=== PATIENT | female | born 1950 | race Caucasian/White ===

== ENCOUNTER 2018-02-01 07:40 | Day surgery (SDC) | payer MEDICARE ==
[~2018-02-01] VITALS: Ht 165.1 cm; Wt 91.8 kg
[~2018-02-01 07:40] MED LIST: CHOL500015 PO; GABA300C10 PO; IBUP-1222 PO; LISI30TA4 PO; MULT-717 PO; OMEG1CAP23 PO; SERT50TA5 PO; VITAMIN B12 PO
[2018-02-01] MEDS ORDERED: ISOSULFAN BLUE 10 MG/ML, 5ML IV ONE (07:44)
[2018-02-01] MEDS ORDERED: EPINEPHRINE 1 MG/ML, 1ML ONE (07:44)
[2018-02-01] MEDS ORDERED: BUPIVACAINE/PF 0.5% ONE (07:44)
[2018-02-01 08:27] VITALS: BP 132/81
[2018-02-01] MEDS ORDERED: LACTATED RINGERS 1,000 ML IV SCH (08:37)
[2018-02-01] MEDS ORDERED: OxyconTIN ER 10 MG TAB.ER PO ONE (09:00)
[2018-02-01] MEDS ORDERED: SCOPOLAMINE PATCH, 1.5MG PATCH.TD72 TD ONE (09:00)
[2018-02-01] MEDS ORDERED: GABAPENTIN 300 MG CAPSULE PO ONE (09:00)
[2018-02-01] MEDS ORDERED: ONDANSETRON 2MG/ML, 2ML IVPush ONE (09:00)
[2018-02-01] MEDS ORDERED: OXYcodone IR 5MG TABLET PO ONE (09:00)
[2018-02-01] MEDS ORDERED: ACETAMINOPHEN 500 MG TABLET PO ONE (09:00)
[2018-02-01] MEDS ORDERED: MIDAZOLAM 1 MG/ML, 2ML ONE (09:10)
[2018-02-01] MEDS ORDERED: FENTANYL PF 100 MCG/2ML ONE ×2 (09:11→12:49)
[2018-02-01] MEDS ORDERED: EPHEDRINE 50 MG/ML, 1ML ONE (10:08)
[2018-02-01] MEDS ORDERED: CEFAZOLIN 1,000 MG ONE (11:34)
[2018-02-01] MEDS ORDERED: PROPOFOL 10 MG/ML, 20ML ONE (11:34)
[2018-02-01] MEDS ORDERED: ONDANSETRON 2MG/ML, 2ML ONE ×2 (11:34→13:01)
[2018-02-01] MEDS ORDERED: DEXAMETHASONE 4 MG/ML, 1ML ONE (11:34)
[2018-02-01] MEDS ORDERED: FENTANYL PF 100 MCG/2ML IV PRN (12:00)
[2018-02-01] MEDS ORDERED: MEPERIDINE/PF 25MG/0.5ML IVPush PRN (12:00)
[2018-02-01] MEDS ORDERED: MIDAZOLAM 1 MG/ML, 2ML IV PRN (12:00)
[2018-02-01] MEDS ORDERED: METOPROLOL 1 MG/ML, 5ML IV PRN (12:00)
[2018-02-01] MEDS ORDERED: HYDROcodone/APAP 7.5-325MG/15ML UDC PO PRN (12:00)
[2018-02-01] MEDS ORDERED: ALBUTEROL SULFATE 2.5 MG/3 ML NPPB PRN (12:00)
[2018-02-01] MEDS ORDERED: PROMETHAZINE 25 MG/ML, 1ML IV PRN (12:00)
[2018-02-01] MEDS ORDERED: DIAZEPAM 5 MG/ML, 2ML IVPush PRN (12:00)
[2018-02-01] MEDS ORDERED: hydrALAzine 20 MG/ML, 1ML IV PRN (12:00)
[2018-02-01] MEDS ORDERED: morphine SULFATE 10 MG/ML, 1ML IV PRN (12:00)
[2018-02-01] MEDS ORDERED: PROMETHAZINE 12.5 MG SUPP PR PRN (12:00)
[2018-02-01] MEDS ORDERED: EPHEDRINE 50 MG/ML, 1ML IVPush PRN (12:00)
[2018-02-01] MEDS ORDERED: LABETALOL 5MG/ML, 20ML IV PRN (12:00)
[2018-02-01] MEDS ORDERED: OXYcodone 5 MG/5 ML ORAL.SOL UDC PO PRN (12:00)
[2018-02-01] MEDS ORDERED: ONDANSETRON 2MG/ML, 2ML IVPush PRN (12:00)
[2018-02-01] MEDS ORDERED: PROMETHAZINE 25 MG/ML, 1ML ONE (13:17)
== END 2018-02-01 16:00 | disposition home or self-care (01) ==
LOC: OUT 07:40
PROVIDERS: ATTEND Surgery
DX: C50.412 Malignant neoplasm of upper-outer quadrant of left female breast (principal); I10 Essential (primary) hypertension; E66.9 Obesity, unspecified; Z68.34 Body mass index [BMI] 34.0-34.9, adult; Z92.21 Personal history of antineoplastic chemotherapy; Z79.899 Other long term (current) drug therapy; Z87.891 Personal history of nicotine dependence
CPT/HCPCS: 19303; 36590; 38525; 88307; C1729; J0171; J0690; J1100; J2250; J2405; J2550; J2704; J3010; J3490; J7120